=== PATIENT | female | born 1970 | race Caucasian/White ===

== ENCOUNTER 2025-06-13 18:34 | Emergency (ER) | payer BC ==
[~2025-06-13] VITALS: Ht 160 cm; Wt 86.2 kg
[2025-06-13 18:58] VITALS: TEMP 98.4
[2025-06-13] MEDS ORDERED: CEPHALEXIN500 MG PO (23:29)
[2025-06-13] MEDS ORDERED: BACTRIM DS TAB1 EACH PO (23:29)
[2025-06-13 23:37] VITALS: PULSE 80; RESP 16; O2SAT 100
== END 2025-06-13 23:38 | disposition home or self-care (01) ==
LOC: ER 19:09
DX: T81.40XA Infection following a procedure, unspecified, initial encounter (principal); T81.30XA Disruption of wound, unspecified, initial encounter; M43.26 Fusion of spine, lumbar region
CPT/HCPCS: 72131; 99283